=== PATIENT | female | born 1970 | race Caucasian/White ===

== ENCOUNTER 2017-10-10 21:43 | Emergency (ER) | payer SELFPAY ==
[2017-10-10 21:50] VITALS: BP 121/44
--- NOTE | 2017-10-11 04:14 | Emergency Department Report ---
HPI - General Chief Complaint: Extremity Injury, Lower Time Seen by Provider: 10/11/17 04:12 - HPI HPI: Patient reports that she injured her left first toe after stepping wrong 4 days ago. She is reported swelling redness and that she scratched the top off her left first toe on something and it was bleeding in the time but not now. She says she has some drainage from the site over the last 2 days and is to red and increase in pain. Denies any numbness or tingling to extremities. Denies any fever or chills. Denies any other injury rather than great toe. She took over- the-counter pain medication that didn't help.. Denies any restriction in movement in toes. Pain worse with weightbearing and movement better with rest. Pain is 6 out of 10 and a can localized to left great toe. ED Past Medical Hx - Past Medical History Previous Medical History?: Yes Hx Hypertension: Yes Hx Diabetes: No Hx Sickle Cell Disease: No Hx Arthritis: Yes Hx Asthma: No Hx COPD: No Hx HIV: No Additional medical history: rheumatoid arthritis - Surgical History Past Surgical History?: Yes Additional Surgical History: tubal ligation - Family History Family history: hypertension - Social History Smoking Status: Never Smoker Substance Use Type: None - Medications Home Medications: Home Medications Medication Instructions Recorded Confirmed Last Taken Type Ferrous Sulfate [Feosol 325 MG tab] 325 mg PO TID #90 tablet 10/14/13 10/10/15 10/09/15 Rx Folic Acid [Folvite] 1 mg PO QDAY 06/23/15 10/10/15 10/09/15 History Methotrexate Sodium [Trexall] 7.5 mg PO QWEEK 06/23/15 10/10/15 10/08/15 History Prednisone [predniSONE (Farrah) ER 5 mg PO QDAY 06/23/15 10/10/15 10/09/15 History TAB] Acetaminophen/Codeine [Tylenol 1 tab PO Q6H PRN #12 tab 10/11/17 Unknown Rx /Codeine # 3 tab] Cephalexin [Keflex] 500 mg PO Q6HR 10 Days #40 capsule 10/11/17 Unknown Rx Ibuprofen [Motrin] 600 mg PO Q8H PRN #12 tablet 10/11/17 Unknown Rx ED Review of Systems ROS: Stated complaint: LEFT FOOT TOE PAIN Other details as noted in HPI Comment: All other systems reviewed and negative Constitutional: no symptoms reported Respiratory: no symptoms reported Cardiovascular: denies: chest pain, palpitations, dyspnea on exertion, edema, syncope, paroxysmal nocturnal dyspnea Gastrointestinal: denies: abdominal pain, nausea, vomiting Musculoskeletal: joint swelling, arthralgia. denies: back pain, myalgia Skin: other (redness and swelling with some drainage to left first toe) Neurological: denies: weakness, numbness, paresthesias, abnormal gait Physical Exam - Physical Exam Vital Signs: Vital Signs 10/10/17 21:44 Temperature 99.1 F Pulse Rate 73 Respiratory 16 Rate Blood Pressure 121/44 O2 Sat by Pulse 98 Oximetry General: This is a 47-year-old female well-nourished well-developed in no acute distress Physical Exam: Head: Normocephalic, atraumatic, no abrasion, no bruising and no contusion. Eyes: Biateral pupils equal and reactive to light, bilateral EOM intact.. Bilateral conjunctival and sclera without injection, normal accommodation. No nystagmus Neck: Supple, No Cervical adenopathy, full range of motion and no C-spine tenderness. No swelling or tracheal deviation normal reflexes Cardiovascular: S1, S2. Regular rate and rhythm. No murmur. Capillary refill is less then 3 seconds. Lungs: Clear to auscultate bilaterally. No rhonchi, wheezes or rales. No chest wall tenderness. No chest contusion. No bruising to chest. MSK: Strength 5/5 in all extremities. Left great toe with bony abnormality/ joint deformity . Erythema and tender to palpate distal phalanx of left great toe. Full range of motion to all extremities but painful with range of motion to the left great toe. Abdomen: Non-tender to palpate in all quadrants, no guarding or rebound tenderness, positive bowel sounds in all quadrants. No CVA tenderness. No hernia, bruit or mass. No rigidity or distention. Extremities: No clubbing, cyanosis or edema except swelling to left great toe.. +2 pulses. No neurovascular compromise Skin: Left great toe distal phalanx erythema, deep abrasion, tender to palpate with swelling. Neurological: GCS at 15, Pt is alert and oriented 3 speech is clear . Normal gait. No motor or sensory deficit and normal reflexes Psych: Normal mood and behavior ED Course Vital Signs 10/10/17 21:44 Temperature 99.1 F Pulse Rate 73 Respiratory 16 Rate Blood Pressure 121/44 O2 Sat by Pulse 98 Oximetry - Reevaluation(s) Reevaluation #1: 10/11/17 05:55 given Keflex 500 mg po for infection to right great toe, Motrin 800 mg for inflammation and pain to left great toe and her tetanus vaccine was updated with Boostrix 0.5 mL. he had no adverse reaction from medication and her pain has been decreased. Reevaluation #2: 10/11/17 06:06 Affected area to left great toe pain with normal saline. An antibiotic ointment placed the site. Dry gauze dressing placed. See discharge instruction and splint - Orthopedic Splinting/Casting Injury #1 Side: left Lower Extremity Injury Location: toe (great toe) Lower Extremity Immobilizer: post-op shoe, sabrina tape Additional Comments: good neurovascular check status post splinting ED Medical Decision Making - Radiology Data Radiology results: report reviewed X-ray of left foot reveal patient with questionable minimal displaced distal tuft fracture in the great toe on the oblique view. No other potential fractures are seen. There is forefoot soft tissue swelling. Mild hallux valgus with first metatarsophalangeal osteoarthritis - Medical Decision Making ED course: Patient air complaining of left great toe pain after injury 4 days ago. She reports redness and swelling to the top of her great toe and physical finding for abrasion to left great toe distally with swelling and redness and tenderness to palpate. She also has swelling to her anterior foot. Patient able to ambulate. Please refer to procedure note for details and splinted. X- ray report revealed a patient with possible fracture to distal tuft of left great toe with minimal displacement. Please see radiology report for details and findings. I discussed patient diagnoses, treatment plan and need to follow up with orthopedic and a primary care physician. She voiced understanding. Patient does not have a primary care*refer her to [facility]. Patient discharged home a prescription for Keflex, Motrin and Tylenol No. 3 Critical care attestation.: If time is entered above; I have spent that time in minutes in the direct care of this critically ill patient, excluding procedure time. 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 Displaced fracture of left great toe Qualifiers: Encounter type: initial encounter Fracture type: closed Phalanx: distal Qualified Code(s): S92.422A - Displaced fracture of distal phalanx of left great toe, initial encounter for closed fracture Disposition: - TO HOME OR SELFCARE Is pt being admited?: No Does the pt Need Aspirin: No Condition: Stable Instructions: Arthralgia (ED), Cellulitis (ED), Osteoarthritis (ED), Toe Fracture (ED), RICE Therapy (ED), Acute Wound Care (ED) Additional Instructions: Please follow up with primary care as recommended Increase fluid intake Take medication as prescribed but please do not drive or operate heavy machinery while taking Tylenol No. 3 as this medication causes drowsiness. Referred to discharge instruction in Rice therapy. follow-up with orthopedic doctor as instructed. Please follow discharge instruction in acute wound care Please keep affected area clean and dry Prescriptions: Acetaminophen/Codeine [Tylenol /Codeine # 3 tab] 1 tab PO Q6H PRN #12 tab PRN Reason: moderate to severe pain Cephalexin [Keflex] 500 mg PO Q6HR 10 Days #40 capsule Ibuprofen [Motrin] 600 mg PO Q8H PRN #12 tablet PRN Reason: Pain Referrals: [facility] [Outside] - 10/13/17 PEDRO MACHADO MD [Staff Physician] - 10/13/17 Forms: Work/School Release Form(ED)
[2017-10-11] MEDS ORDERED: BOOSTRIX IM ONE (04:16)
[2017-10-11] MEDS ORDERED: MOTRIN PO ONE ×2 (04:16→04:53)
[2017-10-11] MEDS ORDERED: KEFLEX PO ONE (04:18)
--- NOTE | 2017-10-11 04:43 | XRay Report ---
FINAL REPORT EXAM: XR FOOT 3+V LT HISTORY: lt foot injury with 1st toe swelling redness/pain COMPARISONS: None. FINDINGS: Three nonweightbearing views left foot Dorsal forefoot soft tissue swelling. Suggested mild hallux valgus and mild 1st metatarsophalangeal osteoarthrosis. Question minimally displaced distal tuft fracture in the great toe on oblique view. No other potential fractures are seen. A calcaneal heel spur is noted. IMPRESSION: Question minimally displaced distal tuft fracture in the great toe on oblique view. No other potential fractures are seen. There is forefoot soft tissue swelling. Mild hallux valgus with 1st metatarsophalangeal osteoarthrosis.
== END 2017-10-11 06:30 | disposition home or self-care (01) ==
LOC: ED 21:43
DX: S92.422A Displaced fracture of distal phalanx of left great toe, initial encounter for closed fracture (principal); I10 Essential (primary) hypertension; M06.9 Rheumatoid arthritis, unspecified; Z98.51 Tubal ligation status; W22.01XA Walked into wall, initial encounter; Y93.89 Activity, other specified; Y92.89 Other specified places as the place of occurrence of the external cause; Y99.8 Other external cause status
CPT/HCPCS: 90471; 90715

== ENCOUNTER 2017-11-09 08:18 | Emergency (ER) | payer SELFPAY ==
[2017-11-09 08:53] VITALS: BP 148/82
[2017-11-09 09:31] LABS: Basophils % (Auto) 0.4 % (0.0-1.8); Eosinophils # (Auto) 0.1 K/mm3 (0.0-0.4); Eosinophils % (Auto) 0.9 % (0.0-4.3); Hematocrit 37.3 % (30.3-42.9); Hemoglobin 11.8 gm/dl (10.1-14.3); Lymphocytes # (Auto) 1.4 K/mm3 (1.2-5.4); Lymphocytes % (Auto) 11.1 % (13.4-35.0); Mean Corpuscular HGB Conc 32 % (30-34); Monocytes # (Auto) 0.6 K/mm3 (0.0-0.8); Monocytes % (Auto) 4.9 % (0.0-7.3); Platelet Count 321 K/mm3 (140-440); Red Blood Count 5.37 M/mm3 (3.65-5.03); Red Cell Distribution Width 16.8 % (13.2-15.2)
[2017-11-09 09:36] LABS: Mean Corpuscular Hemoglobin 22 pg (28-32); Mean Corpuscular Volume 70 fl (79-97)
[2017-11-09 09:38] LABS: Bilirubin,Urine NEG (Negative); Blood,Urine LG (Negative); Color,Urine Yellow (Yellow); Urobilinogen,Urine < 2.0 mg/dL (<2.0)
[2017-11-09 09:39] LABS: WBC,Urine > 182.0 /HPF (0.0-6.0)
[2017-11-09 09:52] LABS: Alanine Aminotransferase 11 units/L (7-56); Albumin 4.1 g/dL (3.9-5); BUN/Creatinine Ratio 32; Blood Urea Nitrogen 16 mg/dL (7-17); Calcium 9.2 mg/dL (8.4-10.2); Hemolysis Index 9
[2017-11-09 12:37] LABS: HCG Qualitative,Urine Negative (Negative)
[2017-11-09] MEDS ORDERED: BACTRIM DS PO ONE (12:49)
[2017-11-09] MEDS ORDERED: TORADOL IM ONE (12:49)
[2017-11-09] MEDS ORDERED: ULTRAM PO ONE (12:49)
--- NOTE | 2017-11-09 12:54 | Emergency Department Report ---
ED Female HPI - General Chief complaint: Abdominal Pain Stated complaint: ABD PAIN Time Seen by Provider: 11/09/17 12:24 Source: patient Mode of arrival: Ambulatory Limitations: No Limitations - History of Present Illness Initial comments: 47 year old female the past with a history of arthritis, hypertension, and tubal ligation presents to the Hospital complains of pelvic pain, increased frequency of urination, dysuria, and hematuria for the past 4 days. Pelvic pain is moderate in intensity, constant, worse palpation and with urination. Pain radiates to both flanks. No complaints of fever, nausea, vomiting, or diarrhea. Patient also complains of postmenopausal intermittent vaginal bleeding is vaginal bleeding at this time. Patient denies history of previous UTI. - Related Data Home Medications Medication Instructions Recorded Confirmed Last Taken Folic Acid [Folvite] 1 mg PO QDAY 06/23/15 10/10/15 10/09/15 Methotrexate Sodium [Trexall] 7.5 mg PO QWEEK 06/23/15 10/10/15 10/08/15 Prednisone [predniSONE (Farrah) ER 5 mg PO QDAY 06/23/15 10/10/15 10/09/15 TAB] Previous Rx's Medication Instructions Recorded Last Taken Type Ferrous Sulfate [Feosol 325 MG tab] 325 mg PO TID #90 tablet 10/14/13 10/09/15 Rx Acetaminophen/Codeine [Tylenol 1 tab PO Q6H PRN #12 tab 10/11/17 Unknown Rx /Codeine # 3 tab] Cephalexin [Keflex] 500 mg PO Q6HR 10 Days #40 capsule 10/11/17 Unknown Rx Ibuprofen [Motrin] 600 mg PO Q8H PRN #12 tablet 10/11/17 Unknown Rx Cephalexin [Keflex] 500 mg PO BID #28 capsule 11/09/17 Unknown Rx Ibuprofen [Motrin] 800 mg PO Q8HR PRN #30 tablet 11/09/17 Unknown Rx Ondansetron [Zofran Odt] 4 mg PO Q8HR PRN #20 tab.rapdis 11/09/17 Unknown Rx traMADol [Ultram 50 MG tab] 50 mg PO Q6HR PRN #20 tablet 11/09/17 Unknown Rx Allergies Allergy/AdvReac Type Severity Reaction Status Date / Time No Known Allergies Allergy Verified 10/10/17 22:07 ED Review of Systems ROS: Stated complaint: ABD PAIN Other details as noted in HPI Comment: All other systems reviewed and negative ED Past Medical Hx - Past Medical History Previous Medical History?: Yes Hx Hypertension: Yes Hx Diabetes: No Hx Sickle Cell Disease: No Hx Arthritis: Yes Hx Asthma: No Hx COPD: No Hx HIV: No Additional medical history: rheumatoid arthritis - Surgical History Past Surgical History?: Yes Additional Surgical History: tubal ligation - Social History Smoking Status: Never Smoker Substance Use Type: Prescribed - Medications Home Medications: Home Medications Medication Instructions Recorded Confirmed Last Taken Type Ferrous Sulfate [Feosol 325 MG tab] 325 mg PO TID #90 tablet 10/14/13 10/10/15 10/09/15 Rx Folic Acid [Folvite] 1 mg PO QDAY 06/23/15 10/10/15 10/09/15 History Methotrexate Sodium [Trexall] 7.5 mg PO QWEEK 06/23/15 10/10/15 10/08/15 History Prednisone [predniSONE (Farrah) ER 5 mg PO QDAY 06/23/15 10/10/15 10/09/15 History TAB] Acetaminophen/Codeine [Tylenol 1 tab PO Q6H PRN #12 tab 10/11/17 Unknown Rx /Codeine # 3 tab] Cephalexin [Keflex] 500 mg PO Q6HR 10 Days #40 capsule 10/11/17 Unknown Rx Ibuprofen [Motrin] 600 mg PO Q8H PRN #12 tablet 10/11/17 Unknown Rx Cephalexin [Keflex] 500 mg PO BID #28 capsule 11/09/17 Unknown Rx Ibuprofen [Motrin] 800 mg PO Q8HR PRN #30 tablet 11/09/17 Unknown Rx Ondansetron [Zofran Odt] 4 mg PO Q8HR PRN #20 tab.rapdis 11/09/17 Unknown Rx traMADol [Ultram 50 MG tab] 50 mg PO Q6HR PRN #20 tablet 11/09/17 Unknown Rx ED Physical Exam - General Limitations: No Limitations - Other Other exam information: General: No limitations, patient is alert in no acute distress Head exam: Atraumatic, normocephalic Eyes exam: Normal appearance ENT: Moist mucous membrane, normal oropharynx Neck exam: Normal inspection, full range of motion, no meningismus nontender Respiratory exam: Clear to auscultation bilateral, no wheezes, rales, crackles Cardiovascular: Normal rate and rhythm, normal heart sounds Abdomen: Soft, nondistended, pelvic tenderness, with normal bowel sounds, no rebound, or guarding Extremity: Full range of motion normal inspection no deformity Back: Normal Inspection, full range of motion, bilateral CVA tenderness Neurologic: Alert, oriented x3, cranial nerves intact, no motor or sensory deficit Psychiatric: normal affect, normal mood Skin: Warm, dry, intact ED Course Vital Signs 11/09/17 08:50 Temperature 98.9 F Pulse Rate 74 Respiratory 18 Rate Blood Pressure 148/82 O2 Sat by Pulse 94 Oximetry - Reevaluation(s) Reevaluation #1: 11/09/17 12:52 see [facility] ED Medical Decision Making - Lab Data Result diagrams: 11/09/17 09:11 11/09/17 09:11 Lab Results 11/09/17 11/09/17 11/09/17 Range/Units 08:57 08:57 09:11 WBC 12.5 H (4.5-11.0) K/mm3 RBC 5.37 H (3.65-5.03) M/mm3 Hgb 11.8 (10.1-14.3) gm/dl Hct 37.3 (30.3-42.9) % MCV 70 L (79-97) fl MCH 22 L (28-32) pg MCHC 32 (30-34) % RDW 16.8 H (13.2-15.2) % Plt Count 321 (140-440) K/mm3 Lymph % (Auto) 11.1 L (13.4-35.0) % [place] % (Auto) 4.9 (0.0-7.3) % Eos % (Auto) 0.9 (0.0-4.3) % Baso % (Auto) 0.4 (0.0-1.8) % Lymph # 1.4 (1.2-5.4) K/mm3 [place] # 0.6 (0.0-0.8) K/mm3 Eos # 0.1 (0.0-0.4) K/mm3 Baso # 0.0 (0.0-0.1) K/mm3 Seg Neutrophils % 82.7 H (40.0-70.0) % Seg Neutrophils # 10.4 H (1.8-7.7) K/mm3 Sodium (137-145) mmol/L Potassium (3.6-5.0) mmol/L Chloride (98-107) mmol/L Carbon Dioxide (22-30) mmol/L Anion Gap mmol/L BUN (7-17) mg/dL Creatinine (0.7-1.2) mg/dL Estimated GFR ml/min BUN/Creatinine Ratio % Glucose (65-100) mg/dL Calcium (8.4-10.2) mg/dL Total Bilirubin (0.1-1.2) mg/dL AST (5-40) units/L ALT (7-56) units/L Alkaline Phosphatase (35-129) units/L Total Protein (6.3-8.2) g/dL Albumin (3.9-5) g/dL Albumin/Globulin Ratio % Urine Color Yellow (Yellow) Urine Turbidity Clear (Clear) Urine pH 6.0 (5.0-7.0) Ur Specific [place] 1.012 (1.003-1.030) Urine Protein 100 mg/dl (Negative) mg/dL Urine Glucose (UA) Neg (Negative) mg/dL Urine Ketones Neg (Negative) mg/dL Urine Blood Lg (Negative) Urine Nitrite Neg (Negative) Urine Bilirubin Neg (Negative) Urine Urobilinogen < 2.0 (<2.0) mg/dL Ur Leukocyte Esterase Lg (Negative) Urine WBC (Auto) > 182.0 H (0.0-6.0) /HPF Urine RBC (Auto) 177.0 (0.0-6.0) /HPF Urine WBC Clumps 3+ /HPF Urine HCG, Qual Negative (Negative) 11/09/17 Range/Units 09:11 WBC (4.5-11.0) K/mm3 RBC (3.65-5.03) M/mm3 Hgb (10.1-14.3) gm/dl Hct (30.3-42.9) % MCV (79-97) fl MCH (28-32) pg MCHC (30-34) % RDW (13.2-15.2) % Plt Count (140-440) K/mm3 Lymph % (Auto) (13.4-35.0) % [place] % (Auto) (0.0-7.3) % Eos % (Auto) (0.0-4.3) % Baso % (Auto) (0.0-1.8) % Lymph # (1.2-5.4) K/mm3 [place] # (0.0-0.8) K/mm3 Eos # (0.0-0.4) K/mm3 Baso # (0.0-0.1) K/mm3 Seg Neutrophils % (40.0-70.0) % Seg Neutrophils # (1.8-7.7) K/mm3 Sodium 142 (137-145) mmol/L Potassium 4.1 (3.6-5.0) mmol/L Chloride 103.7 (98-107) mmol/L Carbon Dioxide 27 (22-30) mmol/L Anion Gap 15 mmol/L BUN 16 (7-17) mg/dL Creatinine 0.5 L (0.7-1.2) mg/dL Estimated GFR > 60 ml/min BUN/Creatinine Ratio 32 % Glucose 108 H (65-100) mg/dL Calcium 9.2 (8.4-10.2) mg/dL Total Bilirubin 0.50 (0.1-1.2) mg/dL AST 13 (5-40) units/L ALT 11 (7-56) units/L Alkaline Phosphatase 137 H (35-129) units/L Total Protein 7.5 (6.3-8.2) g/dL Albumin 4.1 (3.9-5) g/dL Albumin/Globulin Ratio 1.2 % Urine Color (Yellow) Urine Turbidity (Clear) Urine pH (5.0-7.0) Ur Specific [place] (1.003-1.030) Urine Protein (Negative) mg/dL Urine Glucose (UA) (Negative) mg/dL Urine Ketones (Negative) mg/dL Urine Blood (Negative) Urine Nitrite (Negative) Urine Bilirubin (Negative) Urine Urobilinogen (<2.0) mg/dL Ur Leukocyte Esterase (Negative) Urine WBC (Auto) (0.0-6.0) /HPF Urine RBC (Auto) (0.0-6.0) /HPF Urine WBC Clumps /HPF Urine HCG, Qual (Negative) - Medical Decision Making Abdominal pain and urinary symptoms likely secondary to UTI Patient given Bactrim, Toradol, and tramadol in the ED Medications for pain and antibiotics will be continued with extended doses cover for early pyelonephritis given CVA tenderness PMD follow-up rec Intermittent vaginal bleeding Denies currently and H&H unremarkable Outpatient [employer] follow-up will be provided - Differential Diagnosis UTI, , ectopic, diverticulitis, appendicitis, pid Critical Care Time: No Critical care attestation.: If time is entered above; I have spent that time in minutes in the direct care of this critically ill patient, excluding procedure time. ED Disposition Clinical Impression: UTI (urinary tract infection), Post-menopausal bleeding Disposition: TO HOME OR SELFCARE Is pt being admited?: No Does the pt Need Aspirin: No Condition: Stable Instructions: Urinary Tract Infection in Women (ED) Additional Instructions: Take the medication as prescribed. Return if symptoms worsen. Prescriptions: Cephalexin [Keflex] 500 mg PO BID #28 capsule Ibuprofen [Motrin] 800 mg PO Q8HR PRN #30 tablet PRN Reason: Pain Ondansetron [Zofran Odt] 4 mg PO Q8HR PRN #20 tab.rapdis PRN Reason: Nausea And Vomiting traMADol [Ultram 50 MG tab] 50 mg PO Q6HR PRN #20 tablet PRN Reason: Pain Referrals: [facility] [Provider Group] - 3-5 Days Time of Disposition: 13:02 Print Language: LAO
== END 2017-11-09 14:07 | disposition home or self-care (01) ==
LOC: ED 08:18
DX: N39.0 Urinary tract infection, site not specified (principal); N95.0 Postmenopausal bleeding; I10 Essential (primary) hypertension; M06.9 Rheumatoid arthritis, unspecified; Z98.51 Tubal ligation status
CPT/HCPCS: 36415; 80053; 81001; 81025; 85025; 87076; 87086; 87186; 96372; 99283; J1885